=== PATIENT | female | born 1965 | race Caucasian/White ===

== ENCOUNTER 2020-08-31 12:50 | Outpatient (CLI) | payer MEDICARE | END 2020-08-31 12:51 | disposition home or self-care (01) | LOC: CSHWCC 12:50 | PROVIDERS: ATTEND Nurse Practitioner Family | DX: T81.89XD Other complications of procedures, not elsewhere classified, subsequent encounter (principal); I87.2 Venous insufficiency (chronic) (peripheral); T86.821 Skin graft (allograft) (autograft) failure; I70.25 Atherosclerosis of native arteries of other extremities with ulceration; E78.2 Mixed hyperlipidemia; G45.9 Transient cerebral ischemic attack, unspecified; I87.8 Other specified disorders of veins; R60.0 Localized edema; Z89.431 Acquired absence of right foot | CPT/HCPCS: 97139; G0277 ==

== ENCOUNTER 2020-09-06 08:50 | Outpatient (CLI) | payer MEDICARE | END 2020-09-06 08:51 | disposition home or self-care (01) | LOC: CSHWCC 08:50 | PROVIDERS: ATTEND Nurse Practitioner Family | DX: T86.821 Skin graft (allograft) (autograft) failure (principal) | CPT/HCPCS: 97139; G0277 ==

== ENCOUNTER 2020-09-12 16:07 | Outpatient (CLI) | payer MEDICARE | END 2020-09-12 16:08 | disposition home or self-care (01) | LOC: CSHWCC 16:07 | PROVIDERS: ATTEND Nurse Practitioner Family | DX: T86.821 Skin graft (allograft) (autograft) failure (principal) | CPT/HCPCS: G0277 ==

== ENCOUNTER 2020-09-15 12:57 | Outpatient (CLI) | payer MEDICARE | END 2020-09-15 12:58 | disposition home or self-care (01) | LOC: CSHWCC 12:57 | PROVIDERS: ATTEND Nurse Practitioner Family | DX: T86.821 Skin graft (allograft) (autograft) failure (principal) | CPT/HCPCS: 97139; G0277 ==

== ENCOUNTER 2020-09-19 12:58 | Outpatient (CLI) | payer MEDICARE | END 2020-09-19 12:59 | disposition home or self-care (01) | LOC: CSHWCC 12:58 | PROVIDERS: ATTEND Nurse Practitioner Family | DX: T86.821 Skin graft (allograft) (autograft) failure (principal) | CPT/HCPCS: 97139; G0277 ==

== ENCOUNTER 2020-09-22 12:17 | Outpatient (CLI) | payer MEDICARE | END 2020-09-22 12:18 | disposition home or self-care (01) | LOC: CSHWCC 12:17 | PROVIDERS: ATTEND Nurse Practitioner Family | DX: T86.821 Skin graft (allograft) (autograft) failure (principal) | CPT/HCPCS: 99213; G0277; G0463 ==

== ENCOUNTER 2020-10-06 10:30 | Outpatient (CLI) | payer MEDICARE | END 2020-10-06 10:31 | disposition home or self-care (01) | LOC: CSHWCC 10:30 | PROVIDERS: ATTEND Nurse Practitioner Family | DX: T81.89XD Other complications of procedures, not elsewhere classified, subsequent encounter (principal); E78.2 Mixed hyperlipidemia; G45.9 Transient cerebral ischemic attack, unspecified; I10 Essential (primary) hypertension; I70.25 Atherosclerosis of native arteries of other extremities with ulceration; I87.2 Venous insufficiency (chronic) (peripheral); I87.8 Other specified disorders of veins; R60.0 Localized edema; T86.821 Skin graft (allograft) (autograft) failure; Z89.431 Acquired absence of right foot | CPT/HCPCS: 99213; G0463 ==

== ENCOUNTER 2020-10-20 11:14 | Outpatient (CLI) | payer MEDICARE | END 2020-10-20 11:15 | disposition home or self-care (01) | LOC: CSHWCC 11:14 | PROVIDERS: ATTEND Nurse Practitioner Family | DX: T81.89XD Other complications of procedures, not elsewhere classified, subsequent encounter (principal); T86.821 Skin graft (allograft) (autograft) failure; I87.2 Venous insufficiency (chronic) (peripheral); I70.25 Atherosclerosis of native arteries of other extremities with ulceration; G45.9 Transient cerebral ischemic attack, unspecified; E78.2 Mixed hyperlipidemia; I87.8 Other specified disorders of veins; R60.0 Localized edema; Z89.431 Acquired absence of right foot | CPT/HCPCS: 97139; G0463; 99213 ==

== ENCOUNTER 2020-11-09 13:53 | Outpatient (CLI) | payer MEDICARE | END 2020-11-09 13:54 | disposition home or self-care (01) | LOC: CSHWCC 13:53 | PROVIDERS: ATTEND Nurse Practitioner Family | DX: T81.89XD Other complications of procedures, not elsewhere classified, subsequent encounter (principal); T86.821 Skin graft (allograft) (autograft) failure; I87.2 Venous insufficiency (chronic) (peripheral); I70.25 Atherosclerosis of native arteries of other extremities with ulceration; E78.2 Mixed hyperlipidemia; G45.9 Transient cerebral ischemic attack, unspecified; I10 Essential (primary) hypertension; I87.8 Other specified disorders of veins; R60.0 Localized edema; Z89.431 Acquired absence of right foot | CPT/HCPCS: 99213; G0463 ==

== ENCOUNTER 2020-11-23 09:02 | Outpatient (CLI) | payer MEDICARE | END 2020-11-23 09:03 | disposition home or self-care (01) | LOC: CSHWCC 09:02 | PROVIDERS: ATTEND Nurse Practitioner Family | DX: T81.89XD Other complications of procedures, not elsewhere classified, subsequent encounter (principal); I87.2 Venous insufficiency (chronic) (peripheral); T86.821 Skin graft (allograft) (autograft) failure; I70.25 Atherosclerosis of native arteries of other extremities with ulceration; E78.2 Mixed hyperlipidemia; G45.9 Transient cerebral ischemic attack, unspecified; I87.8 Other specified disorders of veins; R60.0 Localized edema; I10 Essential (primary) hypertension; Z89.431 Acquired absence of right foot | CPT/HCPCS: 97139; G0463; 99213 ==

== ENCOUNTER 2024-05-28 13:24 | Outpatient (CLI) | payer OTHER | END 2024-05-28 13:25 | disposition home or self-care (01) | LOC: CSHMRI 13:24 | PROVIDERS: ATTEND Nurse Practitioner Family | DX: L97.122 Non-pressure chronic ulcer of left thigh with fat layer exposed (principal); L98.0 Pyogenic granuloma; Z89.611 Acquired absence of right leg above knee; Z95.828 Presence of other vascular implants and grafts ==